=== PATIENT | male | born 1965 | race African-American/Black ===

== ENCOUNTER → 2018-10-19 | Outpatient (CLI) | payer OTHER | LOC: MRI 13:29 | DX: G44.89 Other headache syndrome (principal) ==

== ENCOUNTER 2018-12-17 13:18 | Emergency (ER) | payer OTHER ==
[~2018-12-17] VITALS: Ht 172.7 cm; Wt 98.9 kg
[2018-12-17 15:11] LABS: HEMATOCRIT 39.8 % (42.0-52.0); HEMOGLOBIN 13.2 gm/dL (14.0-18.0); MCH 27.9 pg (26.0-34.0); MCHC 33.2 g/dL (28.0-37.0); MCV 84.1 fL (80.0-100.0); PLATELET COUNT 207 thou/uL (150-400); RBC 4.73 mil/uL (4.50-6.00); RDW 14.4 % (10.5-14.5)
[2018-12-17 15:20] LABS: CALCIUM 10.3 mg/dL (8.5-10.1); CREATININE 1.6 mg/dL (0.7-1.3); POTASSIUM 4.3 mmol/L (3.5-5.1)
[2018-12-17 15:26] LABS: ALBUMIN 3.2 g/dL (3.4-5.0); TOTAL BILIRUBIN 0.5 mg/dL (<0.1-1.0); TOTAL PROTEIN 7.8 g/dL (6.4-8.2)
[2018-12-17 16:04] LABS: URINE BILIRUBIN NEGATIVE (Negative); URINE BLOOD 1+ (Negative); URINE CLARITY CLEAR; URINE COLOR YELLOW; URINE GLUCOSE-RANDOM* NEGATIVE (Negative); URINE KETONES 1+ (Negative); URINE LEUKOCYTES-REFLEX NEGATIVE (Negative); URINE NITRITE-REFLEX NEGATIVE (Negative); URINE PROTEIN (DIPSTICK) 2+ (Negative); URINE SPECIFIC GRAVITY >= 1.030 (1.005-1.035); URINE UROBILINOGEN 0.2 E.U./dl (0.2-1.0)
[2018-12-17 16:12] LABS: BACTERIA-REFLEX None Seen /HPF (None Seen); COARSE GRANULAR CASTS 0-3 Few /LPF (None Seen); CRYSTALS None Seen /LPF (None Seen); HYALINE CASTS 0-3 Few /LPF (None Seen); MUCUS >6 Heavy strn/LPF (None Seen); SQUAMOUS 0-3 Few /LPF (0-3); URINE RBC 0-2 Rare /HPF (0-2); URINE WBC-REFLEX 0-5 Rare /HPF (0-5)
[2018-12-17] MEDS ORDERED: ONDANSETRON HCL4 M2 PO (16:39)
[2018-12-17] MEDS ORDERED: OSELB75 PO (16:39)
[2018-12-17 17:22] VITALS: BP 131/68
== END 2018-12-17 17:24 | disposition home or self-care (01) ==
LOC: ER 13:18
PROVIDERS: Physician Assistant
DX: N17.9 Acute kidney failure, unspecified (principal); J11.1 Influenza due to unidentified influenza virus with other respiratory manifestations; R11.2 Nausea with vomiting, unspecified; R42 Dizziness and giddiness; Z94.0 Kidney transplant status

== ENCOUNTER → 2019-08-22 | Outpatient (CLI) | payer OTHER ==
[~2019-08-22] MED LIST: ONDANSETRON HCL4 M2 PO; OSELB75 PO
== END ==
LOC: RAD 14:48
DX: M79.89 Other specified soft tissue disorders (principal); M79.605 Pain in left leg

== ENCOUNTER → 2020-02-13 | Outpatient (CLI) | payer OTHER ==
[2020-02-13 14:38] LABS: ABSOLUTE NEUTROPHILS 3.7 thou/uL (1.4-8.2); BASOPHILS 0.4 % (0.0-2.0); HEMATOCRIT 25.7 % (42.0-52.0); HEMOGLOBIN 8.5 gm/dL (14.0-18.0); LYMPHOCYTES 15.8 % (24.0-44.0); MCH 28.3 pg (26.0-34.0); MCHC 33.1 g/dL (28.0-37.0); MCV 85.4 fL (80.0-100.0); MONOCYTES 7.9 % (1.0-8.0); PLATELET COUNT 257 thou/uL (150-400); POLYS 74.9 % (36.0-66.0); RDW 15.5 % (10.5-14.5); WBC 4.9 thou/uL (4.0-11.0)
[2020-02-13 14:51] LABS: URINE CREATININE-RANDOM* 31.1 mg/dL; URINE PROTEIN-RANDOM* 250.3 mg/dL (<11.9)
[2020-02-13 15:04] LABS: ALBUMIN 2.7 g/dL (3.4-5.0); ANION GAP 10 mmol/L (7-16); BUN 26 mg/dL (7-18); CALCIUM 8.2 mg/dL (8.5-10.1); CHLORIDE 108 mmol/L (98-107); CHOLESTEROL 283 mg/dL (<200); CO2 25 mmol/L (21-32); GLUCOSE 150 mg/dL (74-106); HDL CHOLESTEROL 72 mg/dL (>40); LDL CHOLESTEROL 181 mg/dL (<100); MAGNESIUM 1.1 mg/dL (1.8-2.4); PHOSPHORUS 3.5 mg/dL (2.5-4.9); POTASSIUM 3.9 mmol/L (3.5-5.1); SGOT 15 U/L (15-37); SGPT 14 U/L (30-65); SODIUM 143 mmol/L (136-145); TC:HDL 3.9 Ratio (Not establshd); TOTAL BILIRUBIN 0.2 mg/dL (0.2-1.0); TOTAL PROTEIN 6.1 g/dL (6.4-8.2); TRIGLYCERIDE 152 mg/dL (<150); VLDL 30 mg/dL (<40)
== END ==
LOC: LAB 14:05
PROVIDERS: ATTEND Hospitalist
DX: E78.5 Hyperlipidemia, unspecified (principal); Z94.0 Kidney transplant status; Z79.899 Other long term (current) drug therapy

== ENCOUNTER 2020-02-17 12:28 | Emergency (ER) | payer OTHER ==
[~2020-02-17] VITALS: Ht 172.7 cm; Wt 86.2 kg
[2020-02-17 12:58] LABS: URINE BILIRUBIN NEGATIVE (Negative); URINE BLOOD TRACE (Negative); URINE CLARITY CLEAR; URINE COLOR YELLOW; URINE GLUCOSE-RANDOM* NEGATIVE (Negative); URINE KETONES NEGATIVE (Negative); URINE LEUKOCYTES-REFLEX NEGATIVE (Negative); URINE NITRITE-REFLEX NEGATIVE (Negative); URINE PROTEIN (DIPSTICK) 3+ (Negative); URINE UROBILINOGEN 0.2 E.U./dl (0.2-1.0)
[2020-02-17 13:10] LABS: ABSOLUTE NEUTROPHILS 6.2 thou/uL (1.4-8.2); BASOPHILS 1.2 % (0.0-2.0); EOSINOPHILS 0.6 % (0.0-3.0); HEMATOCRIT 24.8 % (42.0-52.0); HEMOGLOBIN 8.1 gm/dL (14.0-18.0); LYMPHOCYTES 13.6 % (24.0-44.0); MCH 28.1 pg (26.0-34.0); MCHC 32.8 g/dL (28.0-37.0); MCV 85.7 fL (80.0-100.0); MONOCYTES 7.2 % (1.0-8.0); PLATELET COUNT 258 thou/uL (150-400); POLYS 77.4 % (36.0-66.0); RBC 2.89 mil/uL (4.50-6.00); RDW 15.3 % (10.5-14.5)
[2020-02-17 13:11] LABS: SQUAMOUS 0-3 Few /LPF (0-3)
[2020-02-17 13:12] LABS: BACTERIA-REFLEX 1-9 Few /HPF (None Seen); URINE RBC None Seen /HPF (0-2); URINE WBC-REFLEX 0-5 Rare /HPF (0-5)
[2020-02-17 13:13] LABS: CASTS None Seen /LPF (None Seen); CRYSTALS None Seen /LPF (None Seen)
[2020-02-17 13:20] LABS: ANION GAP 9 mmol/L (7-16); BUN 30 mg/dL (7-18); CALCIUM 8.3 mg/dL (8.5-10.1); CHLORIDE 106 mmol/L (98-107); CO2 25 mmol/L (21-32); CREATININE 3.3 mg/dL (0.7-1.3); GLUCOSE 140 mg/dL (74-106); SODIUM 140 mmol/L (136-145)
[2020-02-17 13:28] LABS: TROPONIN-I <0.06 ng/mL (<0.06)
[2020-02-17 15:35] VITALS: BP 188/93
--- NOTE | 2020-02-18 08:30 | EKG ---
[facility] [place] [address] ELECTROCARDIOGRAM REPORT Name: MG CASTILLO Room #: DEP [facility]#: [id number] Admission: 02/17/20 Attend Phys: Discharge: 02/17/20 Date of : 63 Report #: [id number] THIS REPORT FOR: cc: Camron Paige James A. DO Lundgren, Craig H. MD [facility] THIS REPORT FOR: //name// [facility] ED Test Date: 2020-02-17 Test Time: 13:19:40 Pat Name: MG CASTILLO Department: Room: Gender: Repairer Maintenance Building: [facility] : 1965 Requested By: Jeb Montejo Order Number: [id number] MD: Anibal Domingo Measurements Intervals [place] Rate: 92 P: 43 [place]: 161 QRS: 38 QRSD: 89 T: 43 QT: 351 QTc: 435 Interpretive Statements Sinus rhythm Nonspecific ST segment abnormality No previous ECG available for comparison Electronically Signed On 02-18-2020 8:28:41 CDT by Anibal Domingo [email or web address] <ELECTRONICALLY SIGNED> By: Anibal Domingo MD, FAC 02/18/20 0828 1319 1319 Anibal Domingo MD, [facility] /EPI
== END 2020-02-17 15:03 | disposition short-term general hospital (02) ==
LOC: ER 12:28
PROVIDERS: Emergency Medicine
DX: R55 Syncope and collapse (principal); S52.592A Other fractures of lower end of left radius, initial encounter for closed fracture; S92.515A Nondisplaced fracture of proximal phalanx of left lesser toe(s), initial encounter for closed fracture; E87.6 Hypokalemia; N18.9 Chronic kidney disease, unspecified; Z94.0 Kidney transplant status; W10.8XXA Fall (on) (from) other stairs and steps, initial encounter; Y93.89 Activity, other specified; Y92.89 Other specified places as the place of occurrence of the external cause; Y99.9 Unspecified external cause status

== ENCOUNTER → 2020-03-24 | Outpatient (CLI) | payer OTHER ==
[2020-03-24 14:52] LABS: ABSOLUTE NEUTROPHILS 2.5 thou/uL (1.4-8.2); BASOPHILS 0.8 % (0.0-2.0); EOSINOPHILS 2.1 % (0.0-3.0); HEMATOCRIT 24.5 % (42.0-52.0); LYMPHOCYTES 22.5 % (24.0-44.0); MCH 28.3 pg (26.0-34.0); MCHC 32.8 g/dL (28.0-37.0); MCV 86.3 fL (80.0-100.0); PLATELET COUNT 244 thou/uL (150-400); POLYS 59.6 % (36.0-66.0); RBC 2.84 mil/uL (4.50-6.00); RDW 16.3 % (10.5-14.5); WBC 4.1 thou/uL (4.0-11.0)
[2020-03-24 15:06] LABS: PROT/CREAT RATIO 7.5; URINE PROTEIN-RANDOM* 682.3 mg/dL (<11.9)
[2020-03-24 15:20] LABS: ALBUMIN 2.8 g/dL (3.4-5.0); ANION GAP 8 mmol/L (7-16); BUN 31 mg/dL (7-18); CHLORIDE 107 mmol/L (98-107); CHOLESTEROL 281 mg/dL (<200); CO2 26 mmol/L (21-32); CREATININE 3.3 mg/dL (0.7-1.3); GLUCOSE 86 mg/dL (74-106); HDL CHOLESTEROL 61 mg/dL (>40); LDL CHOLESTEROL 173 mg/dL (<100); MAGNESIUM 1.3 mg/dL (1.8-2.4); PHOSPHORUS 3.6 mg/dL (2.5-4.9); POTASSIUM 3.6 mmol/L (3.5-5.1); SGOT 15 U/L (15-37); SGPT 17 U/L (30-65); SODIUM 141 mmol/L (136-145); TC:HDL 4.6 Ratio (Not establshd); TOTAL BILIRUBIN 0.2 mg/dL (0.2-1.0); TOTAL PROTEIN 5.6 g/dL (6.4-8.2); TRIGLYCERIDE 239 mg/dL (<150); VLDL 48 mg/dL (<40)
== END ==
LOC: LAB 13:45
PROVIDERS: ATTEND Family Medicine
DX: E11.21 Type 2 diabetes mellitus with diabetic nephropathy (principal); E78.5 Hyperlipidemia, unspecified; Z94.0 Kidney transplant status; Z79.899 Other long term (current) drug therapy

== ENCOUNTER → 2020-04-22 | Outpatient (CLI) | payer OTHER ==
[2020-04-22 15:25] LABS: HEMATOCRIT 23.1 % (42.0-52.0); HEMOGLOBIN 7.3 gm/dL (14.0-18.0); MCH 27.4 pg (26.0-34.0); MCHC 31.8 g/dL (28.0-37.0); MCV 86.2 fL (80.0-100.0); PLATELET COUNT 242 thou/uL (150-400); RBC 2.68 mil/uL (4.50-6.00); RDW 15.9 % (10.5-14.5); WBC 4.6 thou/uL (4.0-11.0)
[2020-04-22 15:46] LABS: URINE CREATININE-RANDOM* 127.2 mg/dL
[2020-04-22 16:15] LABS: PROT/CREAT RATIO 5.7; URINE PROTEIN-RANDOM* 725.3 mg/dL (<11.9)
[2020-04-22 16:36] LABS: ABSOLUTE NEUTROPHILS 3.2 thou/uL (1.4-8.2); ANISOCYTOSIS 1+
[2020-04-22 16:54] LABS: ALBUMIN 2.9 g/dL (3.4-5.0); ANION GAP 10 mmol/L (7-16); BUN 34 mg/dL (7-18); CALCIUM 8.8 mg/dL (8.5-10.1); CHLORIDE 108 mmol/L (98-107); CHOLESTEROL 291 mg/dL (<200); CO2 26 mmol/L (21-32); CREATININE 4.1 mg/dL (0.7-1.3); GLUCOSE 120 mg/dL (74-106); HDL CHOLESTEROL 62 mg/dL (>40); LDL CHOLESTEROL 193 mg/dL (<100); MAGNESIUM 1.3 mg/dL (1.8-2.4); PHOSPHORUS 4.5 mg/dL (2.5-4.9); POTASSIUM 3.5 mmol/L (3.5-5.1); SGOT 12 U/L (15-37); SGPT 15 U/L (30-65); SODIUM 144 mmol/L (136-145); TC:HDL 4.7 Ratio (Not establshd); TOTAL BILIRUBIN 0.2 mg/dL (0.2-1.0); TOTAL PROTEIN 5.8 g/dL (6.4-8.2); TRIGLYCERIDE 183 mg/dL (<150); VLDL 37 mg/dL (<40)
== END ==
LOC: LABMALL 13:50
PROVIDERS: ATTEND Hospitalist
DX: E78.5 Hyperlipidemia, unspecified (principal); E11.21 Type 2 diabetes mellitus with diabetic nephropathy; Z94.0 Kidney transplant status; Z79.899 Other long term (current) drug therapy

== ENCOUNTER → 2020-05-28 | Outpatient (CLI) | payer OTHER ==
[2020-05-28 16:01] LABS: WBC 4.7 thou/uL (4.0-11.0)
[2020-05-28 16:03] LABS: HEMOGLOBIN 6.8 gm/dL (14.0-18.0); MCH 27.1 pg (26.0-34.0); MCHC 32.2 g/dL (28.0-37.0); MCV 84.3 fL (80.0-100.0); PLATELET COUNT 243 thou/uL (150-400); RBC 2.49 mil/uL (4.50-6.00); RDW 16.5 % (10.5-14.5)
[2020-05-28 16:08] LABS: URINE CREATININE-RANDOM* 93.4 mg/dL
[2020-05-28 16:15] LABS: PROT/CREAT RATIO 10.4; URINE PROTEIN-RANDOM* 968.9 mg/dL (<11.9)
[2020-05-28 16:17] LABS: ALBUMIN 2.6 g/dL (3.4-5.0); CALCIUM 8.5 mg/dL (8.5-10.1); CREATININE 5.1 mg/dL (0.7-1.3); MAGNESIUM 1.6 mg/dL (1.8-2.4); PHOSPHORUS 4.1 mg/dL (2.5-4.9); POTASSIUM 3.6 mmol/L (3.5-5.1); TOTAL BILIRUBIN 0.2 mg/dL (0.2-1.0); TOTAL PROTEIN 5.7 g/dL (6.4-8.2)
[2020-05-28 16:24] LABS: ABSOLUTE NEUTROPHILS 2.8 thou/uL (1.4-8.2); PLATELET ESTIMATE NORMAL
== END ==
LOC: LABMALL 15:13
PROVIDERS: ATTEND Hospitalist
DX: E78.5 Hyperlipidemia, unspecified (principal); E11.21 Type 2 diabetes mellitus with diabetic nephropathy; Z94.0 Kidney transplant status

== ENCOUNTER → 2020-05-29 | Outpatient (CLI) | payer OTHER ==
[2020-05-29 16:35] LABS: ALBUMIN 2.5 g/dL (3.4-5.0); ANION GAP 12 mmol/L (7-16); BUN 40 mg/dL (7-18); CALCIUM 8.3 mg/dL (8.5-10.1); CHLORIDE 108 mmol/L (98-107); CHOLESTEROL 308 mg/dL (<200); CO2 23 mmol/L (21-32); GLUCOSE 254 mg/dL (74-106); HDL CHOLESTEROL 63 mg/dL (>40); LDL CHOLESTEROL 192 mg/dL (<100); POTASSIUM 4.5 mmol/L (3.5-5.1); SGOT 14 U/L (15-37); SGPT 11 U/L (30-65); SODIUM 143 mmol/L (136-145); TC:HDL 4.9 Ratio (Not establshd); TOTAL BILIRUBIN 0.2 mg/dL (0.2-1.0); TOTAL PROTEIN 5.9 g/dL (6.4-8.2); TRIGLYCERIDE 265 mg/dL (<150); VLDL 53 mg/dL (<40)
[2020-05-29 16:40] LABS: CREATININE 6.1 mg/dL (0.7-1.3)
[2020-05-30 04:06] LABS: GLYCOHEMOGLOBIN (HGB A1C) 7.3 % (4.8-5.6)
== END ==
LOC: LAB 14:46
PROVIDERS: ATTEND Family Medicine
DX: E78.5 Hyperlipidemia, unspecified (principal); E11.9 Type 2 diabetes mellitus without complications